=== PATIENT | male | born 1970 | race Caucasian/White ===

== ENCOUNTER 2016-11-01 11:07 | Emergency (ER) | payer OTHER ==
[~2016-11-01] VITALS: Ht 162.6 cm; Wt 59.0 kg
[2016-11-01 16:07] VITALS: BP 128/75
== END 2016-11-01 16:07 | disposition home or self-care (01) ==
LOC: ED 11:07
DX: S30.0XXA Contusion of lower back and pelvis, initial encounter (principal); S39.012A Strain of muscle, fascia and tendon of lower back, initial encounter; Q90.9 Down syndrome, unspecified; E03.9 Hypothyroidism, unspecified; W18.30XA Fall on same level, unspecified, initial encounter; Y93.89 Activity, other specified; Y92.019 Unspecified place in single-family (private) house as the place of occurrence of the external cause

== ENCOUNTER 2016-11-10 10:51 | Inpatient (IN) | payer OTHER ==
[2016-11-10] VITALS (8 sets, daily range): BP systolic 94–128; BP diastolic 48–76
[~2016-11-10] VITALS: Ht 162.6 cm; Wt 114.7 kg
[2016-11-10 12:34] LABS: PLATELET COUNT 260 x10^3mcL (130-400)
[2016-11-10 12:38] LABS: RED CELL DISTRIBUTION WIDTH 15.9 % (11.5-14.5)
[2016-11-10 12:42] LABS: CALCIUM 9.4 mg/dL (8.5-10.1); CARBON DIOXIDE 26.6 mmol/L (21-32); CREATININE SERUM 1.6 mg/dL (0.7-1.3); POTASSIUM SERUM 3.8 mmol/L (3.5-5.1)
[2016-11-10 12:46] LABS: BILIRUBIN TOTAL 0.5 mg/dL (0.20-1.00)
[2016-11-10 12:47] LABS: ALBUMIN 2.5 g/dL (3.4-5.0); TOTAL PROTEIN, SERUM 8.8 g/dL (6.4-8.2)
[2016-11-10 13:24] LABS: BAND NEUTROPHIL 36 % (0-10); BASOPHIL 0 % (0-2); MONOCYTE 1 % (0-7); PLATELET MORPHOLOGY LARGE PLATELET SEEN; SEGMENTED NEUTROPHILS 59 % (37-75); rbc morphology (normal/abnorm) ABNORMAL (NORMAL); tear drop cell (dacryocyte) 1+
[2016-11-10 14:19] LABS: UA SPECIFIC GRAVITY 1.025 (1.005-1.035); microscopic required? YES; urine erythrocyte TRACE (NEGATIVE)
[2016-11-10 16:01] LABS: AMPHETAMINE QUAL UR NONE DETECTED (NEG <=1000)
[2016-11-11] VITALS (17 sets, daily range): BP systolic 90–135; BP diastolic 47–76
[2016-11-11 05:27] LABS: PLATELET COUNT 214 x10^3mcL (130-400)
[2016-11-11 05:44] LABS: CALCIUM 7.6 mg/dL (8.5-10.1); CARBON DIOXIDE 23.5 mmol/L (21-32); CHLORIDE SERUM 112 mmol/L (98-107); CREATININE SERUM 0.9 mg/dL (0.7-1.3); GFR1 > 60 mL/min; GLUCOSE SERUM 76 mg/dL (74-106); MAGNESIUM 1.6 mg/dL (1.8-2.4); PHOSPHOROUS 2.4 mg/dL (2.5-4.9); POTASSIUM SERUM 3.1 mmol/L (3.5-5.1); SODIUM SERUM 146 mmol/L (136-145)
[2016-11-11 05:45] LABS: BASOPHIL % 0 % (0-2); RED CELL DISTRIBUTION WIDTH 15.4 % (11.5-14.5)
[2016-11-12] VITALS (17 sets, daily range): BP systolic 96–120; BP diastolic 51–73
[2016-11-12 05:15] LABS: BASOPHIL % 0.4 % (0-2); PLATELET COUNT 201 x10^3mcL (130-400)
[2016-11-12 05:16] LABS: RED CELL DISTRIBUTION WIDTH 15.6 % (11.5-14.5)
[2016-11-12 05:29] LABS: CALCIUM 7.7 mg/dL (8.5-10.1); CARBON DIOXIDE 26.8 mmol/L (21-32); CHLORIDE SERUM 113 mmol/L (98-107); CREATININE SERUM 0.7 mg/dL (0.7-1.3); GFR1 > 60 mL/min; GLUCOSE SERUM 111 mg/dL (74-106); POTASSIUM SERUM 3.2 mmol/L (3.5-5.1); SODIUM SERUM 145 mmol/L (136-145)
[2016-11-12 10:02] LABS: MAGNESIUM 1.9 mg/dL (1.8-2.4); PHOSPHOROUS 2.6 mg/dL (2.5-4.9)
[2016-11-13] VITALS (19 sets, daily range): BP systolic 85–124; BP diastolic 40–79
[2016-11-13 05:18] LABS: BASOPHIL % 0.3 % (0-2); PLATELET COUNT 208 x10^3mcL (130-400); RED CELL DISTRIBUTION WIDTH 15.7 % (11.5-14.5)
[2016-11-13 05:23] LABS: CALCIUM 7.8 mg/dL (8.5-10.1); CARBON DIOXIDE 31.1 mmol/L (21-32); CHLORIDE SERUM 110 mmol/L (98-107); CREATININE SERUM 0.7 mg/dL (0.7-1.3); GFR1 > 60 mL/min; GLUCOSE SERUM 83 mg/dL (74-106); POTASSIUM SERUM 3.6 mmol/L (3.5-5.1); SODIUM SERUM 145 mmol/L (136-145)
[2016-11-13 06:26] LABS: MAGNESIUM 1.8 mg/dL (1.8-2.4); PHOSPHOROUS 2.8 mg/dL (2.5-4.9)
[2016-11-14] VITALS (17 sets, daily range): BP systolic 101–151; BP diastolic 42–78
[2016-11-14 05:30] LABS: BASOPHIL % 0.4 % (0-2); PLATELET COUNT 238 x10^3mcL (130-400)
[2016-11-14 05:31] LABS: RED CELL DISTRIBUTION WIDTH 15.3 % (11.5-14.5)
[2016-11-14 06:36] LABS: CALCIUM 7.9 mg/dL (8.5-10.1); CARBON DIOXIDE 33.2 mmol/L (21-32); CHLORIDE SERUM 105 mmol/L (98-107); CREATININE SERUM 0.8 mg/dL (0.7-1.3); GFR1 > 60 mL/min; GLUCOSE SERUM 91 mg/dL (74-106); POTASSIUM SERUM 3.6 mmol/L (3.5-5.1); SODIUM SERUM 144 mmol/L (136-145)
[2016-11-15] VITALS (9 sets, daily range): BP systolic 94–117; BP diastolic 53–92
[2016-11-15 05:44] LABS: BASOPHIL % 0.3 % (0-2); PLATELET COUNT 248 x10^3mcL (130-400)
[2016-11-15 05:46] LABS: CALCIUM 8.1 mg/dL (8.5-10.1); CARBON DIOXIDE 32.7 mmol/L (21-32); CHLORIDE SERUM 107 mmol/L (98-107); CREATININE SERUM 0.7 mg/dL (0.7-1.3); GFR1 > 60 mL/min; GLUCOSE SERUM 106 mg/dL (74-106); POTASSIUM SERUM 4.2 mmol/L (3.5-5.1); SODIUM SERUM 144 mmol/L (136-145)
[2016-11-15 05:51] LABS: RED CELL DISTRIBUTION WIDTH 15.3 % (11.5-14.5)
[2016-11-15] MEDS ORDERED: SEROQUEL200 MG PO (15:41)
[2016-11-15] MEDS ORDERED: D-20001 TAB PO (15:41)
[2016-11-15] MEDS ORDERED: FERROUS SULFAT325 M2 PO (15:42)
[2016-11-15] MEDS ORDERED: CLONAZEPAM1 MG PO (15:43)
[2016-11-15] MEDS ORDERED: SYNTHROID0.05 MG PO (15:45)
[2016-11-15] MEDS ORDERED: MULTI-VITAMINS1 TAB PO (15:46)
[2016-11-15] MEDS ORDERED: NATURE'S BLEND500 M3 PO (15:46)
[2016-11-15] MEDS ORDERED: TRAZODONE50 M1 PO (15:47)
[2016-11-15] MEDS ORDERED: OMEPRAZOLE40 M1 PO (15:48)
[2016-11-16] VITALS (7 sets, daily range): BP systolic 103–148; BP diastolic 50–80; Ht 162.6 cm; Wt 114.7 kg
[2016-11-16 04:32] LABS: BASOPHIL % 0.3 % (0-2); PLATELET COUNT 282 x10^3mcL (130-400)
[2016-11-16 04:34] LABS: RED CELL DISTRIBUTION WIDTH 15.4 % (11.5-14.5)
[2016-11-16 04:42] LABS: CALCIUM 7.8 mg/dL (8.5-10.1); CARBON DIOXIDE 30.4 mmol/L (21-32); CHLORIDE SERUM 105 mmol/L (98-107); CREATININE SERUM 0.8 mg/dL (0.7-1.3); GFR1 > 60 mL/min; GLUCOSE SERUM 98 mg/dL (74-106); POTASSIUM SERUM 4.1 mmol/L (3.5-5.1); SODIUM SERUM 143 mmol/L (136-145)
[2016-11-17 08:55] LABS: CALCIUM 8.5 mg/dL (8.5-10.1); CARBON DIOXIDE 27.8 mmol/L (21-32); CHLORIDE SERUM 106 mmol/L (98-107); CREATININE SERUM 0.9 mg/dL (0.7-1.3); GFR1 > 60 mL/min; GLUCOSE SERUM 94 mg/dL (74-106); POTASSIUM SERUM 4.6 mmol/L (3.5-5.1); SODIUM SERUM 144 mmol/L (136-145)
[2016-11-17 08:56] LABS: BASOPHIL % 0.7 % (0-2); PLATELET COUNT 376 x10^3mcL (130-400)
[2016-11-17 10:04] LABS: RED CELL DISTRIBUTION WIDTH 16.2 % (11.5-14.5)
[2016-11-17 13:55] VITALS: BP 124/88
[2016-11-17 18:11] VITALS: BP 99/54
[2016-11-17 20:16] VITALS: BP 107/59
[2016-11-18 06:10] VITALS: BP 108/64
[2016-11-18 06:12] LABS: BASOPHIL % 0.4 % (0-2); PLATELET COUNT 350 x10^3mcL (130-400)
[2016-11-18 06:37] LABS: ALKALINE PHOSPHATASE 121 U/L (46-116); ALT/SGPT 42 U/L (16-63); AST/SGOT 48 U/L (15-37); BILIRUBIN TOTAL 0.26 mg/dL (0.20-1.00); CALCIUM 8.3 mg/dL (8.5-10.1); CARBON DIOXIDE 25.6 mmol/L (21-32); CHLORIDE SERUM 104 mmol/L (98-107); CREATININE SERUM 0.9 mg/dL (0.7-1.3); GFR1 > 60 mL/min; GLUCOSE SERUM 83 mg/dL (74-106); POTASSIUM SERUM 4.5 mmol/L (3.5-5.1); SODIUM SERUM 138 mmol/L (136-145); TOTAL PROTEIN, SERUM 7.5 g/dL (6.4-8.2)
[2016-11-18 06:41] LABS: RED CELL DISTRIBUTION WIDTH 15.7 % (11.5-14.5)
[2016-11-18 10:05] VITALS: BP 105/66
[2016-11-19 04:30] VITALS: BP 109/69
[2016-11-19 17:32] VITALS: BP 105/69
[2016-11-20] VITALS (7 sets, daily range): BP systolic 91–110; BP diastolic 54–71
[2016-11-20 07:17] LABS: BASOPHIL % 0.3 % (0-2); PLATELET COUNT 340 x10^3mcL (130-400)
[2016-11-20 07:25] LABS: RED CELL DISTRIBUTION WIDTH 16.9 % (11.5-14.5)
[2016-11-20 07:35] LABS: CALCIUM 8.4 mg/dL (8.5-10.1); CARBON DIOXIDE 25.4 mmol/L (21-32); CHLORIDE SERUM 108 mmol/L (98-107); CREATININE SERUM 1.2 mg/dL (0.7-1.3); GFR1 > 60 mL/min; GLUCOSE SERUM 91 mg/dL (74-106); MAGNESIUM 2.5 mg/dL (1.8-2.4); PHOSPHOROUS 4.2 mg/dL (2.5-4.9); POTASSIUM SERUM 4.6 mmol/L (3.5-5.1); SODIUM SERUM 142 mmol/L (136-145)
[2016-11-21 05:35] VITALS: BP 104/61
[2016-11-21 09:26] VITALS: BP 113/66
[2016-11-21 18:17] VITALS: BP 115/65
[2016-11-21 21:26] VITALS: BP 93/55
[2016-11-22 02:21] VITALS: BP 111/62
[2016-11-22 06:11] LABS: BASOPHIL % 0.3 % (0-2); PLATELET COUNT 345 x10^3mcL (130-400)
[2016-11-22 06:20] LABS: CARBON DIOXIDE 29.2 mmol/L (21-32); CHLORIDE SERUM 104 mmol/L (98-107); GFR1 > 60 mL/min; GLUCOSE SERUM 82 mg/dL (74-106); POTASSIUM SERUM 4.6 mmol/L (3.5-5.1); SODIUM SERUM 139 mmol/L (136-145)
[2016-11-22 06:33] LABS: RED CELL DISTRIBUTION WIDTH 16.5 % (11.5-14.5)
[2016-11-22 06:41] VITALS: BP 107/65
[2016-11-22 08:25] VITALS: BP 105/72
[2016-11-22 10:00] VITALS: BP 112/71
[2016-11-22 13:55] VITALS: BP 105/72
[2016-11-22 18:25] VITALS: BP 115/69
== END 2016-11-22 19:43 | disposition home or self-care (01) | DRG 870 ==
LOC: ED 10:51 → IC 13:02 → DU 13:02 → ED 13:02 → IC 16:08 → DU 11-16 19:09 → MU 11-17 20:14
PROVIDERS: Emergency Medicine; Family Medicine; ADMIT Family Medicine
PROC: 5A1955Z Respiratory Ventilation, Greater than 96 Consecutive Hours (ICD-10-PCS; principal; 2016-11-10)
PROC: 0BH17EZ Insertion of Endotracheal Airway into Trachea, Via Natural or Artificial Opening (ICD-10-PCS; 2016-11-10)
PROC: 05HN33Z Insertion of Infusion Device into Left Internal Jugular Vein, Percutaneous Approach (ICD-10-PCS; 2016-11-10)
PROC: B544ZZA Ultrasonography of Left Jugular Veins, Guidance (ICD-10-PCS; 2016-11-10)
DX: A41.9 Sepsis, unspecified organism (principal); R65.21 Severe sepsis with septic shock; N17.0 Acute kidney failure with tubular necrosis; J96.01 Acute respiratory failure with hypoxia; E43 Unspecified severe protein-calorie malnutrition; J69.0 Pneumonitis due to inhalation of food and vomit; G93.41 Metabolic encephalopathy; Z68.1 Body mass index [BMI] 19.9 or less, adult; E87.0 Hyperosmolality and hypernatremia; Q90.9 Down syndrome, unspecified; J44.9 Chronic obstructive pulmonary disease, unspecified; M62.50 Muscle wasting and atrophy, not elsewhere classified, unspecified site; E87.6 Hypokalemia; E83.42 Hypomagnesemia; E83.39 Other disorders of phosphorus metabolism; E87.8 Other disorders of electrolyte and fluid balance, not elsewhere classified; D64.9 Anemia, unspecified
CPT/HCPCS: 36556; 36600; 83880; 92610; 92610-GN; 97110-GP; 97530-GP; A4628; J0330; J1630; J1642; J1644; J1885; J1956; J2060; J2270; J2405; J2543; J2704; J3475; J3480; J3490; J7030; J7620; Q0092